=== PATIENT | male | born 1975 | race Two or more races ===

== ENCOUNTER → 2020-07-16 | Outpatient (CLI) | payer OTHER ==
--- NOTE | 2020-07-16 12:16 | RAD ---
EXAM: 3 views of the right elbow DATE: 07/16/2020 12:00 AM INDICATION: Reason: RIGHT ELBOW PAIN, S/P FALL X2 WEEKS AGO IN SHOWER / Spl. Instructions: / History: COMPARISON: No Prior FINDINGS: No elbow joint effusion. No acute fracture or dislocation. Old coronoid process avulsion fracture or associated anterior capsular proliferative change. 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 No significant soft tissue swelling. IMPRESSION: 1. No acute fracture or dislocation. 2. 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 Electronically signed by: Rayshawn Magallanes MD (07/16/2020 12:13 PM) [id number]
== END ==
LOC: DXRAD 08:07
PROVIDERS: ATTEND Physician Assistant
DX: M19.021 Primary osteoarthritis, right elbow (principal); M25.721 Osteophyte, right elbow
CPT/HCPCS: 73080